=== PATIENT | female | born 1950 | race African-American/Black ===

== ENCOUNTER 2024-11-03 11:26 | Emergency (ER) | payer OTHER ==
[2024-11-03 11:42] VITALS: BMI 35.2
[2024-11-03] MEDS ORDERED: ALBUTEROL SO4 2.5/IPRATROPIUM 0.5 INH SOL 3 ML VIAL.NEB. NEB ONE ×2 (12:24→15:05)
[2024-11-03] MEDS ORDERED: CEPHALEXIN MONOHYDRATE 500 MG CAPSULE (UD) ONE (12:25)
[2024-11-03] MEDS: CEPHALEXIN MONOHYDRATE 500 MG CAPSULE (UD) PO ONE (13:15)
[2024-11-03] MEDS: ALBUTEROL SO4 2.5/IPRATROPIUM 0.5 INH SOL 3 ML VIAL.NEB. NEB ONE (13:15)
[2024-11-03 13:16] LABS: ABSOLUTE IMMATURE GRANULOCYTES 0.04 x10^3/uL (0.0-0.031); BASOPHILS # 0.06 x10^3/uL (0.01-0.08); EOSINOPHIL % 1.6 % (0.7-5.8); EOSINOPHILS # 0.17 x10^3/uL (0.04-0.36); MCHC 31.0 g/dl (32.2-35.5); MEAN CELL VOLUME 87.6 fl (79.4-94.8); MEAN PLT VOLUME 11.2 fl (9.4-12.3); MONOCYTE # 1.10 x10^3/uL (0.24-0.86); MONOCYTE % 10.6 % (4.7-12.5); RDW 15.9 % (12.4-16.6)
[2024-11-03 13:24] LABS: INR 1.02 (0.83-1.09); PROTHROMBIN TIME (PATIENT) 11.2 SEC (9.7-13.0)
[2024-11-03 13:27] LABS: ACTIVATED PTT 28.0 SECONDS (25.2-36.5)
[2024-11-03] MEDS: ALBUTEROL SO4 2.5/IPRATROPIUM 0.5 INH SOL 3 ML VIAL.NEB. NEB SCH (13:47)
[2024-11-03 13:49] LABS: CO2 28.0 mmol/L (21-32); GLUCOSE,RANDOM 118.0 mg/dL (74-106)
[2024-11-03 13:53] LABS: CREATININE 1.2 mg/dL (0.55-1.3); SGOT/AST 38.0 U/L (15-37); SGPT/ALT 26.0 U/L (13-61)
[2024-11-03 13:55] LABS: TOT PROT 7.5 g/dl (6.4-8.2)
[2024-11-03 13:56] LABS: ALK PHOS 69.0 U/L (45-117)
[2024-11-03 14:35] LABS: HIV INTERPRETATION NEGATIVE (NEGATIVE)
[2024-11-03 14:38] LABS: HCV DIAGNOSTIC IN-HOUSE W/RFLX REACTIVE (NONREACTIVE)
[2024-11-03] MEDS ORDERED: AMPICILLIN NA/SULBACTAM NA 3 GM/100 ML BAG IVPB ONE ×2 (15:04→15:13)
[2024-11-03] MEDS ORDERED: KETOROLAC TROMETHAMINE 15 MG/ML VIAL ONE (15:04)
[2024-11-03] MEDS: KETOROLAC TROMETHAMINE 15 MG/ML VIAL IVPUSH ONE (15:30)
[2024-11-03] MEDS: AMPICILLIN NA/SULBACTAM NA 3 GM in SODIUM CHLORIDE 100 ML IVPB ONE (15:31)
[2024-11-03 15:55] VITALS: BP 157/68; PULSE 84; RESP 19; TEMP 98
== END 2024-11-03 19:14 | disposition home or self-care (01) ==
LOC: JER 11:26
PROC: 3E03329 Introduction of Other Anti-infective into Peripheral Vein, Percutaneous Approach (ICD-10-PCS; principal; 2024-11-03)
PROC: 3E0333Z Introduction of Anti-inflammatory into Peripheral Vein, Percutaneous Approach (ICD-10-PCS; 2024-11-03)
PROC: 3E0F7GC Introduction of Other Therapeutic Substance into Respiratory Tract, Via Natural or Artificial Opening (ICD-10-PCS; 2024-11-03)
DX: L03.116 Cellulitis of left lower limb (principal); W22.03XA Walked into furniture, initial encounter
CPT/HCPCS: 36415; 80053; 85025; 85610; 85730; 86803; 86850; 86900; 86901; 87389; 87522; 93971-TC; 99285-25